=== PATIENT | female | born 1950 | race Caucasian/White ===

== ENCOUNTER 2019-06-25 08:54 | Inpatient (IN) | payer MEDICARE, OTHER ==
[2019-06-25] MEDS: Sodium Chloride 0.9% 10 ML Syringe FLUSH PRN (09:10)
[2019-06-25] MEDS ORDERED: Aspirin 81 MG Tab.Chew PO ONE (09:25)
--- NOTE | 2019-06-25 09:27 | EDM.PDOC ---
ED HPI GENERAL MEDICAL PROBLEM - General Stated Complaint: SOB Time Seen by Provider: 06/25/19 09:17 Source of Information: Reports: Patient History Limitations: Reports: No Limitations - History of Present Illness INITIAL COMMENTS - FREE TEXT/NARRATIVE: 68-year-old female who reports she developed a cold yesterday during the day. That is, she had some nasal congestion and a cough. That evening she began to have body aches and chills and at approximately 7 PM she reports that when she had coughing spells she got short of breath. The shortness of breath seemed to improve quickly after the coughing spell but the coughing spells became more frequent and shortness of breath lasted for longer periods of time. She also had a feeling of tightness and a dull ache in her chest with the cough. She rates that discomfort is a 6/10. It does not radiate. It is primarily there when she coughs. She did not sleep very well last night. She reports that she has had decrease fluid intake over the past 12-18 hours because she has felt too short of breath. She also reports that she has had diaphoretic episodes off and on with these coughing spells. No nausea but she has had 1 episode of posttussive emesis. No abdominal pain. Beginning at 8 AM today she was short of breath even without coughing and she could not "catch her breath". She does have diffuse body aches. There is no leg swelling. She tried her rescue inhaler several times without relief. She has never had episodes like this before she states. She has never required intubation. She has no nebulizer treatments at home. No home oxygen. She was noted to be 86% on room air white dyspneic by the nursing staff when she arrived to the emergency department today. There are no other associated signs or symptoms. There are no other modifying factors. Onset: Other (Yesterday during the day) Duration: Getting Worse Location: Reports: Chest Quality: Reports: Dull Severity: Moderate Improves with: Reports: Rest Worsens with: Reports: Breathing, Other (Coughing and activity) Context: Reports: Other (As above) Associated Symptoms: Reports: Chest Pain, Cough, Diaphoresis, Fever/Chills, Loss of Appetite, Nausea/Vomiting, Shortness of Breath, Weakness (With coughing spell) Treatments [employer]: Reports: Other Medication(s) (Rescue inhaler) Midsternal chest Pain Score (Numeric/FACES): 6 - Related Data Allergies Allergy/AdvReac Type Severity Reaction Status Date / Time No Known Allergies Allergy Verified 06/25/19 09:15 Home Meds: Home Meds Multivitamin [Multivitamins] 1 tab PO DAILY 06/30/14 [History] Albuterol Sulfate [Albuterol Sulfate Hfa] 2 puff Q4H PRN 06/25/19 [History] Ascorbic Acid [Vitamin C] 1,000 mg PO DAILY 06/25/19 [History] Cholecalciferol (Vitamin D3) [Vitamin D3] 2,000 unit PO DAILY 06/25/19 [History] Cyanocobalamin (Vitamin B-12) [Vitamin B-12] 1,000 mcg PO DAILY 06/25/19 [ History] Levothyroxine [Synthroid] 50 mcg DAILY 06/25/19 [History] Rosuvastatin Calcium 10 mg BEDTIME 06/25/19 [History] Sertraline HCl 50 mg DAILY 06/25/19 [History] Umeclidinium Brm/Vilanterol Tr [Anoro Ellipta 62.5-25 MCG] 1 puff DAILY [History] amLODIPine Besylate [Amlodipine Besylate] 10 mg DAILY 06/25/19 [History] Past Medical History Cardiovascular History: Reports: High Cholesterol, Hypertension Respiratory History: Reports: COPD Psychiatric History: Reports: Anxiety, Depression Endocrine/Metabolic History: Reports: Hypothyroidism - Past Surgical History GI Surgical History: Reports: Colonoscopy (2) Female Surgical History: Reports: Section Social & Family History - Tobacco Use Smoking Status *Q: Current Every Day Smoker - Alcohol Use Alcohol Use History: Yes Alcohol Use Frequency: Weekly - Living Situation & Occupation Living situation: Reports: with Family Occupation: Retired ED ROS GENERAL - Review of Systems Review Of Systems: See Below Constitutional: Reports: Chills, Malaise, Fatigue, Diaphoresis (Off and on) HEENT: Reports: Other (Nasal congestion) Respiratory: Reports: Shortness of Breath, Wheezing, Cough, Other (No phlegm production) Cardiovascular: Reports: Chest Pain, Dyspnea on Exertion, Lightheadedness GI/Abdominal: Reports: Vomiting (One posttussive emesis.) : Reports: Other (Decreased urine output over the past 18-24 hours.) Musculoskeletal: Reports: Other (Body aches throughout. No leg edema.) Skin: Reports: Diaphoresis (Off and on.) Neurological: Reports: No Symptoms Hematologic/Lymphatic: Reports: No Symptoms Immunologic: Reports: No Symptoms ED EXAM, GENERAL - Physical Exam Exam: See Below Exam Limited By: No Limitations General Appearance: Alert, WD/WN, Moderate Distress (She appears quite dyspneic) Eye Exam: Bilateral Eye: EOMI, Normal Inspection, PERRL Ears: Normal External Exam, Hearing Grossly Normal Ear Exam: Bilateral Ear: Auricle Normal Nose: Normal Inspection, Normal Mucosa, No Blood Throat/Mouth: Normal Lips, Normal Voice, No Airway Compromise, Other (Somewhat dry mucous membranes) Head: Atraumatic, Normocephalic Neck: Normal Inspection, Supple, Non-Tender, Full Range of Motion Respiratory/Chest: Chest Non-Tender, Respiratory Distress, Rhonchi (Some scattered rhonchi), Wheezing (Throughout with decreased air movement), Accessory Muscle Use (With some purse lipped breathing), Prolonged Expiration. No: Rales Cardiovascular: Normal Peripheral Pulses, No Edema, No JVD, Tachycardia Peripheral Pulses: 2+: Radial (L), Radial (R), Dorsalis Pedis (L), Dorsalis Pedis (R) GI/Abdominal: Normal Bowel Sounds, Soft, Non-Tender, No Mass Back Exam: Normal Inspection, Full Range of Motion Extremities: Normal Inspection, Normal Range of Motion, Non-Tender, No Pedal Edema, Normal Capillary Refill Neurological: Alert, Oriented, CN II-XII Intact, Normal Cognition, No Motor/ Sensory Deficits Skin Exam: Warm, Dry, Intact, Normal Color, No Rash EKG INTERPRETATION EKG Date: 06/25/19 Time: 09:03 Rhythm: NSR (Sinus tachycardia) Rate (Beats/Min): 125 Chandler: LAD-Left Chandler Deviation (Left anterior fascicular block) P-Wave: Present QRS: Other (Borderline widened) ST-T: Other (Nonspecific ST-T changes.) QT: Prolonged (Normal QT but prolonged QTc.) Comparison: NA - No Prior EKG Course - Vital Signs Last Recorded V/S: Last Vital Signs Temp 36.7 C 06/25/19 08:54 Pulse 140 H 06/25/19 08:54 Resp 28 H 06/25/19 08:54 BP 146/98 H 06/25/19 08:54 Pulse Ox 95 06/25/19 10:15 - Orders/Labs/Meds Orders: Active Orders 24 hr Category Date Time Status EKG Documentation Completion [RC] ASDIRECTED Care 06/25/19 09:25 Active Oxygen Therapy Adult [Oxygen Therapy, ED] [RC] Care 06/25/19 08:54 Active ASDIRECTED RT Aerosol Therapy [RC] ASDIRECTED Care 06/25/19 09:31 Active Chest 1V Frontal [CR] Stat Exams 06/25/19 09:28 Taken Sodium Chloride 0.9% [Normal Saline] 1,000 ml Med 06/25/19 09:30 Active IV ASDIRECTED Sodium Chloride 0.9% [Saline Flush] Med 06/25/19 09:25 Active 10 ml FLUSH ASDIRECTED PRN Peripheral IV Insertion Adult [OM.PC] Routine Oth 06/25/19 09:25 Ordered EKG 12 Lead [EK] Routine Ther 06/25/19 09:24 Ordered Medication Orders Sodium Chloride (Normal Saline) 1,000 mls @ 999 mls/hr IV ASDIRECTED ANIBAL Last Admin: 06/25/19 09:45 Dose: 999 mls/hr Azithromycin 500 mg/ Sodium (Chloride) 250 mls @ 250 mls/hr IV Q24H ANIBAL Ceftriaxone Sodium 1 gm/ (Sodium Chloride) 50 mls @ 200 mls/hr IV Q24H ANIBAL Sodium Chloride (Saline Flush) 10 ml FLUSH ASDIRECTED PRN PRN Reason: Keep Vein Open Last Admin: 06/25/19 09:10 Dose: 10 ml Labs: Laboratory Tests 06/25/19 06/25/19 06/25/19 Range/Units 09:00 09:00 09:00 WBC 7.6 (4.5-12.0) X10-3/uL RBC 4.87 (3.23-5.20) x10(6)uL Hgb 14.6 (11.5-15.5) g/dL Hct 43.3 (30.0-51.3) % MCV 88.9 (80-96) fL MCH 29.9 (27.7-33.6) pg MCHC 33.7 (32.2-35.4) g/dL RDW 12.8 (11.5-15.5) % Plt Count 197 (125-369) X10(3)uL MPV 8.8 (7.4-10.4) fL Neut % (Auto) 79.6 (46-82) % Lymph % (Auto) 10.9 L (13-37) % Randall % (Auto) 7.0 (4-12) % Eos % (Auto) 2 (1.0-5.0) % Baso % (Auto) 1 (0-2) % Neut # (Auto) 6.2 (1.6-8.3) # Lymph # (Auto) 0.8 (0.6-5.0) # Randall # (Auto) 0.5 (0.0-1.3) # Eos # (Auto) 0.1 (0.0-0.8) # Baso # (Auto) 0.0 (0.0-0.2) # D-Dimer, Quantitative (0.0-0.59) mg/LFEU POC VBG pH (7.31-7.41) POC VBG pCO2 (41-51) mmHG POC VBG HCO3 (23-28) mmol/L POC VBG Total CO2 (24-29) mmol/L POC VBG Base Excess (-2-3) mmol/L Sodium 141 (135-145) mmol/L Potassium 3.8 (3.5-5.3) mmol/L Chloride 102 (100-110) mmol/L Carbon Dioxide 27 (21-32) mmol/L BUN 9 (7-18) mg/dL Creatinine 0.8 (0.55-1.02) mg/dL Est Cr Clr Drug Dosing 54.71 mL/min Estimated GFR (MDRD) > 60 (>60) BUN/Creatinine Ratio 11.3 (9-20) Glucose 114 (80-116) mg/dL Calcium 8.7 (8.6-10.2) mg/dL Magnesium (1.8-2.5) mg/dL Total Bilirubin 0.4 (0.1-1.3) mg/dL AST 34 H (5-25) IU/L ALT 32 (12-36) U/L Alkaline Phosphatase 88 (56-112) IU/L Troponin I < 0.017 L (<0.017-0.056) ng/mL C-Reactive Protein (0.5-0.9) mg/dL NT-Pro-B Natriuret Pep (<=125) pg/mL Total Protein 7.7 (6.0-8.0) g/dL Albumin 3.8 (3.2-4.6) g/dL Globulin 3.9 g/dL Albumin/Globulin Ratio 1.0 06/25/19 06/25/19 06/25/19 Range/Units 09:00 09:00 09:00 WBC (4.5-12.0) X10-3/uL RBC (3.23-5.20) x10(6)uL Hgb (11.5-15.5) g/dL Hct (30.0-51.3) % MCV (80-96) fL MCH (27.7-33.6) pg MCHC (32.2-35.4) g/dL RDW (11.5-15.5) % Plt Count (125-369) X10(3)uL MPV (7.4-10.4) fL Neut % (Auto) (46-82) % Lymph % (Auto) (13-37) % Randall % (Auto) (4-12) % Eos % (Auto) (1.0-5.0) % Baso % (Auto) (0-2) % Neut # (Auto) (1.6-8.3) # Lymph # (Auto) (0.6-5.0) # Randall # (Auto) (0.0-1.3) # Eos # (Auto) (0.0-0.8) # Baso # (Auto) (0.0-0.2) # D-Dimer, Quantitative (0.0-0.59) mg/LFEU POC VBG pH (7.31-7.41) POC VBG pCO2 (41-51) mmHG POC VBG HCO3 (23-28) mmol/L POC VBG Total CO2 (24-29) mmol/L POC VBG Base Excess (-2-3) mmol/L Sodium (135-145) mmol/L Potassium (3.5-5.3) mmol/L Chloride (100-110) mmol/L Carbon Dioxide (21-32) mmol/L BUN (7-18) mg/dL Creatinine (0.55-1.02) mg/dL Est Cr Clr Drug Dosing mL/min Estimated GFR (MDRD) (>60) BUN/Creatinine Ratio (9-20) Glucose (80-116) mg/dL Calcium (8.6-10.2) mg/dL Magnesium 1.9 (1.8-2.5) mg/dL Total Bilirubin (0.1-1.3) mg/dL AST (5-25) IU/L ALT (12-36) U/L Alkaline Phosphatase (56-112) IU/L Troponin I (<0.017-0.056) ng/mL C-Reactive Protein 5.8 H* (0.5-0.9) mg/dL NT-Pro-B Natriuret Pep 287 H (<=125) pg/mL Total Protein (6.0-8.0) g/dL Albumin (3.2-4.6) g/dL Globulin g/dL Albumin/Globulin Ratio 06/25/19 06/25/19 Range/Units 09:00 10:18 WBC (4.5-12.0) X10-3/uL RBC (3.23-5.20) x10(6)uL Hgb (11.5-15.5) g/dL Hct (30.0-51.3) % MCV (80-96) fL MCH (27.7-33.6) pg MCHC (32.2-35.4) g/dL RDW (11.5-15.5) % Plt Count (125-369) X10(3)uL MPV (7.4-10.4) fL Neut % (Auto) (46-82) % Lymph % (Auto) (13-37) % Randall % (Auto) (4-12) % Eos % (Auto) (1.0-5.0) % Baso % (Auto) (0-2) % Neut # (Auto) (1.6-8.3) # Lymph # (Auto) (0.6-5.0) # Randall # (Auto) (0.0-1.3) # Eos # (Auto) (0.0-0.8) # Baso # (Auto) (0.0-0.2) # D-Dimer, Quantitative 0.45 (0.0-0.59) mg/LFEU POC VBG pH 7.35 (7.31-7.41) POC VBG pCO2 48.8 (41-51) mmHG POC VBG HCO3 27.1 (23-28) mmol/L POC VBG Total CO2 29 (24-29) mmol/L POC VBG Base Excess 2 (-2-3) mmol/L Sodium (135-145) mmol/L Potassium (3.5-5.3) mmol/L Chloride (100-110) mmol/L Carbon Dioxide (21-32) mmol/L BUN (7-18) mg/dL Creatinine (0.55-1.02) mg/dL Est Cr Clr Drug Dosing mL/min Estimated GFR (MDRD) (>60) BUN/Creatinine Ratio (9-20) Glucose (80-116) mg/dL Calcium (8.6-10.2) mg/dL Magnesium (1.8-2.5) mg/dL Total Bilirubin (0.1-1.3) mg/dL AST (5-25) IU/L ALT (12-36) U/L Alkaline Phosphatase (56-112) IU/L Troponin I (<0.017-0.056) ng/mL C-Reactive Protein (0.5-0.9) mg/dL NT-Pro-B Natriuret Pep (<=125) pg/mL Total Protein (6.0-8.0) g/dL Albumin (3.2-4.6) g/dL Globulin g/dL Albumin/Globulin Ratio Meds: Medications Generic Name Dose Route Start Last Admin Trade Name Freq PRN Reason Stop Dose Admin Sodium Chloride 1,000 mls @ 999 mls/hr 06/25/19 09:30 06/25/19 09:45 Normal Saline IV 999 mls/hr ASDIRECTED ANIBAL Administration Azithromycin 500 mg/ Sodium 250 mls @ 250 mls/hr 06/25/19 12:00 Chloride IV Q24H ANIBAL Ceftriaxone Sodium 1 gm/ 50 mls @ 200 mls/hr 06/25/19 12:00 Sodium Chloride IV Q24H ANIBAL Sodium Chloride 10 ml 06/25/19 09:25 06/25/19 09:10 Saline Flush FLUSH 10 ml ASDIRECTED PRN Administration Keep Vein Open Discontinued Medications Generic Name Dose Route Start Last Admin Trade Name Freq PRN Reason Stop Dose Admin Albuterol 2.5 mg 06/25/19 09:30 06/25/19 09:43 Proventil Neb Soln NEB 06/25/19 09:31 2.5 mg ONETIME ONE Administration Albuterol 2.5 mg 06/25/19 11:58 Proventil Neb Soln NEB 06/25/19 11:59 ONETIME ONE Albuterol/Ipratropium 3 ml 06/25/19 09:30 06/25/19 09:43 Duoneb 3.0-0.5 Mg/3 Ml NEB 06/25/19 09:31 3 ml ONETIME ONE Administration Aspirin 324 mg 06/25/19 09:25 06/25/19 09:10 Aspirin PO 06/25/19 09:26 324 mg ONETIME ONE Administration Methylprednisolone Sodium Succinate 125 mg 06/25/19 09:30 06/25/19 09:46 Solu-Medrol IVPUSH 06/25/19 09:31 125 mg ONETIME ONE Administration - Radiology Interpretation Free Text/Narrative:: Portable chest x-ray shows hyperinflated lungs with COPD but no acute infiltrate. - Re-Assessments/Exams Free Text/Narrative Re-Assessment/Exam: 06/25/19 11:38: After nebulizer treatments and IV Solu-Medrol, the patient feels improved. She is on room air but her O2 saturations are 89-90% and I will be placing her back on oxygen at 3 L/m via nasal cannula. She is still quite wheezy. Her chest x-ray shows no definite infiltrate and she has no evidence of congestive heart failure. Her blood tests were reassuring. This appears to be respiratory failure associated with a COPD exacerbation. I will order an additional nebulizer treatment. The patient does have acute hypoxic respiratory failure related to her COPD. She will need admission with supplemental oxygen, frequent nebulizer treatments, IV steroids treatment and IV antibiotics. This plan of care cannot be safely accomplished as an outpatient. She will need an inpatient hospital visit of least a 2 midnight stay. I have discussed this with the patient and she is in agreement with the plan for admission. I will discuss her case with Dr. Proctor. 06/25/19 12:05: I discussed the patient's case with Dr. Proctor hospitalist at [facility], and he has agreed to admit the patient. The patient will be given Rocephin and Zithromax IV. Dr. Proctor will see the patient on the floor. Departure - Departure Time of Disposition: 12:15 Disposition: Admitted As Inpatient 68 Condition: Fair (Stable) Clinical Impression: COPD exacerbation, Acute respiratory failure with hypoxia - Discharge Information - My Orders Last 24 Hours: My Active Orders 06/25/19 08:54 Oxygen Therapy Adult [Oxygen Therapy, ED] [RC] ASDIRECTED 06/25/19 09:24 EKG 12 Lead [EK] Routine 06/25/19 09:25 EKG Documentation Completion [RC] ASDIRECTED Sodium Chloride 0.9% [Saline Flush] 10 ml FLUSH ASDIRECTED PRN Peripheral IV Insertion Adult [OM.PC] Routine 06/25/19 09:28 Chest 1V Frontal [CR] Stat 06/25/19 09:30 Sodium Chloride 0.9% [Normal Saline] 1,000 ml IV ASDIRECTED 06/25/19 09:31 RT Aerosol Therapy [RC] ASDIRECTED - Assessment/Plan Last 24 Hours: My Active Orders 06/25/19 08:54 Oxygen Therapy Adult [Oxygen Therapy, ED] [RC] ASDIRECTED 06/25/19 09:24 EKG 12 Lead [EK] Routine 06/25/19 09:25 EKG Documentation Completion [RC] ASDIRECTED Sodium Chloride 0.9% [Saline Flush] 10 ml FLUSH ASDIRECTED PRN Peripheral IV Insertion Adult [OM.PC] Routine 06/25/19 09:28 Chest 1V Frontal [CR] Stat 06/25/19 09:30 Sodium Chloride 0.9% [Normal Saline] 1,000 ml IV ASDIRECTED 06/25/19 09:31 RT Aerosol Therapy [RC] ASDIRECTED
[2019-06-25] MEDS ORDERED: Albuterol 0.083% 2.5 MG/3 ML Neb Soln NEB ONE ×2 (09:30→11:58)
[2019-06-25] MEDS ORDERED: Sodium Chloride 0.9% 1,000 ML IV SCH (09:30)
[2019-06-25] MEDS ORDERED: methylPREDNISolone Sodium Succinate 125 MG/2 ML SDV IVPUSH ONE (09:30)
[2019-06-25] MEDS ORDERED: Albuterol/Ipratropium 3.0-0.5 MG/3 ML Neb Soln NEB ONE (09:30)
[2019-06-25] MEDS ORDERED: cefTRIAXone 1 GM in Sodium Chloride 0.9% 50 ML IV SCH (12:00)
--- NOTE | 2019-06-25 13:13 | PCM.HP.2 ---
H&P History of Present Illness - General Date of Service: 06/25/19 Admit Problem/Dx: Admission Diagnosis/Problem Admission Diagnosis/Problem COPD, Severe chronic obstructive pulmonary disease Source of Information: Patient History Limitations: Reports: No Limitations - History of Present Illness Initial Comments - Free Text/Narative: this is a 68-year-old female patient with a history of COPD and smoking. 2 days prior to being hospitalized patient started having a chest cold with nasal congestion, sore throat, left ear pain, fevers or chills and a cough. Day prior to being seen she started he really short of breath and wheeze. She was seen in the ER and she was hypoxic. They gave her nebulizer she was in oxygen and then she was admitted. She says she's never been on prednisone or an oxygen before. She has a long history of smoking and still smokes 3 course pack-a-day. She says she's tried to quit over 40 times. She says some nausea and vomited 1. No diarrhea, abdominal pain or leg swelling. Midsternal chest Pain Score (Numeric/FACES): 6 - Related Data Allergies/Adverse Reactions: Allergies Allergy/AdvReac Type Severity Reaction Status Date / Time No Known Allergies Allergy Verified 06/25/19 09:15 Home Medications: Home Meds Multivitamin [Multivitamins] 1 tab PO DAILY 06/30/14 [History] Albuterol Sulfate [Albuterol Sulfate Hfa] 2 puff Q4H PRN 06/25/19 [History] Ascorbic Acid [Vitamin C] 1,000 mg PO DAILY 06/25/19 [History] Cholecalciferol (Vitamin D3) [Vitamin D3] 2,000 unit PO DAILY 06/25/19 [History] Cyanocobalamin (Vitamin B-12) [Vitamin B-12] 1,000 mcg PO DAILY 06/25/19 [ History] Levothyroxine [Synthroid] 50 mcg DAILY 06/25/19 [History] Rosuvastatin Calcium 10 mg BEDTIME 06/25/19 [History] Sertraline HCl 50 mg DAILY 06/25/19 [History] Umeclidinium Brm/Vilanterol Tr [Anoro Ellipta 62.5-25 MCG] 1 puff DAILY [History] amLODIPine Besylate [Amlodipine Besylate] 10 mg DAILY 06/25/19 [History] Past Medical History Cardiovascular History: Reports: High Cholesterol, Hypertension Respiratory History: Reports: COPD Genitourinary History: Reports: None [employer] History: Reports: Psychiatric History: Reports: Anxiety, Depression Endocrine/Metabolic History: Reports: Hypothyroidism - Infectious Disease History Infectious Disease History: Reports: Chicken Pox - Past Surgical History GI Surgical History: Reports: Colonoscopy (2) Female Surgical History: Reports: Section Social & Family History - Family History Family Medical History: Noncontributory - Tobacco Use Smoking Status *Q: Current Every Day Smoker Years of Tobacco use: 50 Packs/Tins Daily: 0.7 - Caffeine Use Caffeine Use: Reports: Coffee - Alcohol Use Days Per Week of Alcohol Use: 1 Number of Drinks Per Day: 4 Total Drinks Per Week: 4 - Recreational Drug Use Recreational Drug Use: No - Living Situation & Occupation Living situation: Reports: with Family Occupation: Retired H&P Review of Systems - Review of Systems: Review Of Systems: See Below General: Reports: Fever, Chills, Diaphoresis. Denies: Weakness, Decreased Appetite HEENT: Reports: Ear Pain, Post Nasal Drip, Sinus Congestion, Sore Throat Pulmonary: Reports: Shortness of Breath, Wheezing, Cough. Denies: Sputum, Hemoptysis Cardiovascular: Reports: No Symptoms Gastrointestinal: Reports: Nausea, Vomiting. Denies: Black Stool, Bloody Stool , Constipation, Diarrhea Genitourinary: Reports: No Symptoms Musculoskeletal: Reports: No Symptoms Skin: Reports: No Symptoms Psychiatric: Reports: Depression, Anxiety, Other (Just started being treated for depression and anxiety but 1 month ago on Zoloft. She says Zoloft makes her a little bit more depressed but the anxiety is much better.) Hematologic/Lymphatic: Reports: No Symptoms Immunologic: Reports: No Symptoms Exam - Exam Exam: See Below - Vital Signs Vital Signs: Last Vital Signs Temp 98.1 F 06/25/19 08:54 Pulse 140 H 06/25/19 08:54 Resp 28 H 06/25/19 08:54 BP 146/98 H 06/25/19 08:54 Pulse Ox 95 06/25/19 10:15 Weight: 160 lb - Exam General: Alert, Oriented, Cooperative HEENT: Hearing Intact, Mucosa Moist & [place], Posterior Pharynx Clear, TMs Clear Neck: Supple, Trachea Midline, Full Range of Motion. No: Lymphadenopathy, Carotid Bruit, JVD Lungs: Normal Respiratory Effort, Decreased Breath Sounds, Wheezing. No: Crackles, Rales, Rhonchi Cardiovascular: Regular Rate, Regular Rhythm, Normal S1, Normal S2. No: Systolic Murmur, Diastolic Murmur GI/Abdominal Exam: Normal Bowel Sounds, Soft, Non-Tender, No Organomegaly, No Distention, No Abnormal Bruit, No Mass Back Exam: Normal Inspection Extremities: Normal Inspection, Non-Tender, No Pedal Edema Skin: Warm, Dry, Intact Neurological: Normal Speech, Normal Tone Neuro Extensive - Mental Status: Alert, Oriented x3, Normal Mood/Affect, Normal Cognition, Memory Intact Psychiatric: Alert, Normal Affect, Normal Mood - Patient Data Lab Results Last 24 hrs: Laboratory Results - last 24 hr 06/25/19 06/25/19 06/25/19 Range/Units 09:00 09:00 09:00 WBC 7.6 (4.5-12.0) X10-3/uL RBC 4.87 (3.23-5.20) x10(6)uL Hgb 14.6 (11.5-15.5) g/dL Hct 43.3 (30.0-51.3) % MCV 88.9 (80-96) fL MCH 29.9 (27.7-33.6) pg MCHC 33.7 (32.2-35.4) g/dL RDW 12.8 (11.5-15.5) % Plt Count 197 (125-369) X10(3)uL MPV 8.8 (7.4-10.4) fL Neut % (Auto) 79.6 (46-82) % Lymph % (Auto) 10.9 L (13-37) % [place] % (Auto) 7.0 (4-12) % Eos % (Auto) 2 (1.0-5.0) % Baso % (Auto) 1 (0-2) % Neut # (Auto) 6.2 (1.6-8.3) # Lymph # (Auto) 0.8 (0.6-5.0) # [place] # (Auto) 0.5 (0.0-1.3) # Eos # (Auto) 0.1 (0.0-0.8) # Baso # (Auto) 0.0 (0.0-0.2) # D-Dimer, Quantitative (0.0-0.59) mg/LFEU POC VBG pH (7.31-7.41) POC VBG pCO2 (41-51) mmHG POC VBG HCO3 (23-28) mmol/L POC VBG Total CO2 (24-29) mmol/L POC VBG Base Excess (-2-3) mmol/L Sodium 141 (135-145) mmol/L Potassium 3.8 (3.5-5.3) mmol/L Chloride 102 (100-110) mmol/L Carbon Dioxide 27 (21-32) mmol/L BUN 9 (7-18) mg/dL Creatinine 0.8 (0.55-1.02) mg/dL Est Cr Clr Drug Dosing 54.71 mL/min Estimated GFR (MDRD) > 60 (>60) BUN/Creatinine Ratio 11.3 (9-20) Glucose 114 (80-116) mg/dL Calcium 8.7 (8.6-10.2) mg/dL Magnesium (1.8-2.5) mg/dL Total Bilirubin 0.4 (0.1-1.3) mg/dL AST 34 H (5-25) IU/L ALT 32 (12-36) U/L Alkaline Phosphatase 88 (56-112) IU/L Troponin I < 0.017 L (<0.017-0.056) ng/mL C-Reactive Protein (0.5-0.9) mg/dL NT-Pro-B Natriuret Pep (<=125) pg/mL Total Protein 7.7 (6.0-8.0) g/dL Albumin 3.8 (3.2-4.6) g/dL Globulin 3.9 g/dL Albumin/Globulin Ratio 1.0 06/25/19 06/25/19 06/25/19 Range/Units 09:00 09:00 09:00 WBC (4.5-12.0) X10-3/uL RBC (3.23-5.20) x10(6)uL Hgb (11.5-15.5) g/dL Hct (30.0-51.3) % MCV (80-96) fL MCH (27.7-33.6) pg MCHC (32.2-35.4) g/dL RDW (11.5-15.5) % Plt Count (125-369) X10(3)uL MPV (7.4-10.4) fL Neut % (Auto) (46-82) % Lymph % (Auto) (13-37) % [place] % (Auto) (4-12) % Eos % (Auto) (1.0-5.0) % Baso % (Auto) (0-2) % Neut # (Auto) (1.6-8.3) # Lymph # (Auto) (0.6-5.0) # Harvey # (Auto) (0.0-1.3) # Eos # (Auto) (0.0-0.8) # Baso # (Auto) (0.0-0.2) # D-Dimer, Quantitative (0.0-0.59) mg/LFEU POC VBG pH (7.31-7.41) POC VBG pCO2 (41-51) mmHG POC VBG HCO3 (23-28) mmol/L POC VBG Total CO2 (24-29) mmol/L POC VBG Base Excess (-2-3) mmol/L Sodium (135-145) mmol/L Potassium (3.5-5.3) mmol/L Chloride (100-110) mmol/L Carbon Dioxide (21-32) mmol/L BUN (7-18) mg/dL Creatinine (0.55-1.02) mg/dL Est Cr Clr Drug Dosing mL/min Estimated GFR (MDRD) (>60) BUN/Creatinine Ratio (9-20) Glucose (80-116) mg/dL Calcium (8.6-10.2) mg/dL Magnesium 1.9 (1.8-2.5) mg/dL Total Bilirubin (0.1-1.3) mg/dL AST (5-25) IU/L ALT (12-36) U/L Alkaline Phosphatase (56-112) IU/L Troponin I (<0.017-0.056) ng/mL C-Reactive Protein 5.8 H* (0.5-0.9) mg/dL NT-Pro-B Natriuret Pep 287 H (<=125) pg/mL Total Protein (6.0-8.0) g/dL Albumin (3.2-4.6) g/dL Globulin g/dL Albumin/Globulin Ratio 06/25/19 06/25/19 Range/Units 09:00 10:18 WBC (4.5-12.0) X10-3/uL RBC (3.23-5.20) x10(6)uL Hgb (11.5-15.5) g/dL Hct (30.0-51.3) % MCV (80-96) fL MCH (27.7-33.6) pg MCHC (32.2-35.4) g/dL RDW (11.5-15.5) % Plt Count (125-369) X10(3)uL MPV (7.4-10.4) fL Neut % (Auto) (46-82) % Lymph % (Auto) (13-37) % [place] % (Auto) (4-12) % Eos % (Auto) (1.0-5.0) % Baso % (Auto) (0-2) % Neut # (Auto) (1.6-8.3) # Lymph # (Auto) (0.6-5.0) # Harvey # (Auto) (0.0-1.3) # Eos # (Auto) (0.0-0.8) # Baso # (Auto) (0.0-0.2) # D-Dimer, Quantitative 0.45 (0.0-0.59) mg/LFEU POC VBG pH 7.35 (7.31-7.41) POC VBG pCO2 48.8 (41-51) mmHG POC VBG HCO3 27.1 (23-28) mmol/L POC VBG Total CO2 29 (24-29) mmol/L POC VBG Base Excess 2 (-2-3) mmol/L Sodium (135-145) mmol/L Potassium (3.5-5.3) mmol/L Chloride (100-110) mmol/L Carbon Dioxide (21-32) mmol/L BUN (7-18) mg/dL Creatinine (0.55-1.02) mg/dL Est Cr Clr Drug Dosing mL/min Estimated GFR (MDRD) (>60) BUN/Creatinine Ratio (9-20) Glucose (80-116) mg/dL Calcium (8.6-10.2) mg/dL Magnesium (1.8-2.5) mg/dL Total Bilirubin (0.1-1.3) mg/dL AST (5-25) IU/L ALT (12-36) U/L Alkaline Phosphatase (56-112) IU/L Troponin I (<0.017-0.056) ng/mL C-Reactive Protein (0.5-0.9) mg/dL NT-Pro-B Natriuret Pep (<=125) pg/mL Total Protein (6.0-8.0) g/dL Albumin (3.2-4.6) g/dL Globulin g/dL Albumin/Globulin Ratio Result Diagrams: 06/25/19 09:00 06/25/19 09:00 - Problem List (1) Hypoxia SNOMED Code(s): 003364577 ICD Code: R09.02 - HYPOXEMIA Status: Acute Current Visit: Yes (2) URI (upper respiratory infection) SNOMED Code(s): 58297341 ICD Code: J06.9 - ACUTE UPPER RESPIRATORY INFECTION, UNSPECIFIED Status: Acute Current Visit: Yes (3) Smoking SNOMED Code(s): 37160382 ICD Code: F17.200 - NICOTINE DEPENDENCE, UNSPECIFIED, UNCOMPLICATED Status : Acute Current Visit: Yes (4) COPD exacerbation SNOMED Code(s): 811453301 ICD Code: J44.1 - CHRONIC OBSTRUCTIVE PULMONARY DISEASE W (ACUTE) EXACERBATION Status: Acute Current Visit: Yes Problem List Initiated/Reviewed/Updated: Yes Orders Last 24hrs: Active Orders 24 hr Category Date Time Status Admission Status [Patient Status] [ADT] Routine ADT 06/25/19 11:56 Active EKG Documentation Completion [RC] ASDIRECTED Care 06/25/19 09:25 Active Oxygen Therapy Adult [Oxygen Therapy, ED] [RC] Care 06/25/19 08:54 Active ASDIRECTED RT Aerosol Therapy [RC] ASDIRECTED Care 06/25/19 09:31 Active RT Aerosol Therapy [RC] ASDIRECTED Care 06/25/19 11:58 Active RT Aerosol Therapy [RC] ASDIRECTED Care 06/25/19 13:03 Ordered Up ad Delfina [RC] ASDIRECTED Care 06/25/19 13:04 Ordered Regular Diet [DIET] Diet 06/25/19 Dinner Ordered Chest 1V Frontal [CR] Stat Exams 06/25/19 09:28 Taken UA W/MICROSCOPIC [URIN] Routine Lab 06/25/19 13:00 Ordered Albuterol/Ipratropium [DuoNeb 3.0-0.5 MG/3 ML] Med 06/25/19 17:00 Ordered 3 ml NEB QID Azithromycin [Zithromax] 500 mg Med 06/25/19 12:00 Active Sodium Chloride 0.9% [Normal Saline (AdvBag)] 250 ml IV Q24H Cyanocobalamin (Vitamin B12) [Vitamin B12] Med 06/26/19 09:00 Ordered 1,000 mcg PO DAILY Enoxaparin [Lovenox] Med 06/25/19 13:15 Ordered 40 mg SUBCUT DAILY Levothyroxine [Synthroid] Med 06/26/19 09:00 Ordered 50 mcg PO DAILY Multivitamin [Multivitamins] Med 06/26/19 09:00 Ordered 1 tab PO DAILY Nicotine [Habitrol] Med 06/25/19 13:15 Ordered 21 mg TRDERM DAILY Rosuvastatin [Crestor] Med 06/25/19 21:00 Ordered 10 mg PO BEDTIME Sertraline [Zoloft] Med 06/26/19 09:00 Ordered 50 mg PO DAILY Sodium Chloride 0.9% [Normal Saline] 1,000 ml Med 06/25/19 09:30 Active IV ASDIRECTED Sodium Chloride 0.9% [Saline Flush] Med 06/25/19 09:25 Active 10 ml FLUSH ASDIRECTED PRN amLODIPine [Norvasc] Med 06/26/19 09:00 Ordered 10 mg PO DAILY cefTRIAXone [Rocephin] Med 06/25/19 13:00 Active 1 gm IVPUSH Q24H methylPREDNISolone Sod Succ [Solu-MEDROL] Med 06/25/19 13:15 Ordered 125 mg IVPUSH Q8H Peripheral IV Insertion Adult [OM.PC] Routine Oth 06/25/19 09:25 Ordered SCD [Sequential Compression Device] [OM.PC] Routine Oth 06/25/19 13:07 Ordered Resuscitation Status Routine Resus Stat 06/25/19 13:02 Ordered EKG 12 Lead [EK] Routine Ther 06/25/19 09:24 Ordered Medication Orders Albuterol/Ipratropium (Duoneb 3.0-0.5 Mg/3 Ml) 3 ml NEB QIDRT ANIBAL Ceftriaxone Sodium (Rocephin) 1 gm IVPUSH Q24H [facility] Sodium Chloride (Normal Saline) 1,000 mls @ 999 mls/hr IV ASDIRECTED ANIBAL Last Admin: 06/25/19 09:45 Dose: 999 mls/hr Azithromycin 500 mg/ Sodium (Chloride) 250 mls @ 250 mls/hr IV Q24H ANIBAL Methylprednisolone Sodium Succinate (Solu-Medrol) 125 mg IVPUSH Q8H [facility] Nicotine (Habitrol) 21 mg TRDERM DAILY [facility] Sodium Chloride (Saline Flush) 10 ml FLUSH ASDIRECTED PRN PRN Reason: Keep Vein Open Last Admin: 06/25/19 09:10 Dose: 10 ml Assessment/Plan Comment:: 1. admit to inpatient. 2. Patient will be a full code per patient request. 3. Duo nebs 4 times a day and every 4 hours when necessary. 4. Solu-Medrol 125 mg every 8 hours IV 5. O2 nasal cannula keep sats between 88-92%. 6. Smoking cessation discussed. Will lacer on the 21 g nicotine patch 7. Up ad delfina. with a regular diet. 8. Rocephin and Zithromax IV. 9. Lovenox and SCDs for VTE prophylaxis. - Mortality Measure Prognosis:: Good
[2019-06-25] MEDS ORDERED: Nicotine 21 MG/24 Hr Patch TRDERM SCH (13:15)
[2019-06-25] MEDS ORDERED: Enoxaparin 40 MG/0.4 ML Syringe SUBCUT SCH (13:15)
[2019-06-25] MEDS: cefTRIAXone 1 GM Vial IVPUSH SCH (13:54)
[2019-06-25] MEDS: Azithromycin 500 MG in Sodium Chloride 0.9% 250 ML IV SCH (13:56)
[2019-06-25] MEDS: Albuterol/Ipratropium 3.0-0.5 MG/3 ML Neb Soln NEB SCH ×2 (15:57→20:26)
[2019-06-25] MEDS: methylPREDNISolone Sodium Succinate 125 MG/2 ML SDV IVPUSH SCH (16:18)
[2019-06-25] MEDS: Acetaminophen 325 MG Tab PO PRN (19:43)
[2019-06-25] MEDS: Rosuvastatin 10 MG Tab PO SCH (20:26)
[2019-06-26] MEDS: Acetaminophen 325 MG Tab PO PRN ×3 (00:41→21:56)
[2019-06-26] MEDS: methylPREDNISolone Sodium Succinate 125 MG/2 ML SDV IVPUSH SCH ×2 (00:41→10:05)
[2019-06-26] MEDS: Sodium Chloride 0.9% 10 ML Syringe FLUSH PRN ×2 (00:43→10:05)
[2019-06-26] MEDS: Albuterol/Ipratropium 3.0-0.5 MG/3 ML Neb Soln NEB SCH ×4 (06:16→20:21)
[2019-06-26] MEDS: Levothyroxine 50 MCG Tab PO SCH (06:29)
[2019-06-26] MEDS: Multivitamin Tab PO SCH (08:33)
[2019-06-26] MEDS: Cyanocobalamin (Vitamin B12) 1,000 MCG Tab PO SCH (08:34)
[2019-06-26] MEDS: amLODIPine 10 MG Tab PO SCH (08:34)
[2019-06-26] MEDS: Sertraline 50 MG Tab PO SCH (08:34)
--- NOTE | 2019-06-26 08:47 | PCM.PN ---
- General Info Date of Service: 06/26/19 Admission Dx/Problem (Free Text): Patient states breathing is better today. She says she still have a cough that' s nonproductive. She denies fevers, chills. She has less wheezing. When she walks she is less short of breath although she's been pretty short of breath walking last night. - Patient Data Vitals - Most Recent: Last Vital Signs Temp 97.9 F 06/26/19 00:50 Pulse 110 H 06/26/19 00:50 Resp 18 06/26/19 00:50 BP 121/85 06/26/19 08:34 Pulse Ox 91 L 06/26/19 00:50 Weight - Most Recent: 156 lb 3 oz Lab Results Last 24 Hours: Laboratory Results - last 24 hr 06/25/19 06/25/19 06/25/19 Range/Units 09:00 09:00 09:00 WBC 7.6 (4.5-12.0) X10-3/uL RBC 4.87 (3.23-5.20) x10(6)uL Hgb 14.6 (11.5-15.5) g/dL Hct 43.3 (30.0-51.3) % MCV 88.9 (80-96) fL MCH 29.9 (27.7-33.6) pg MCHC 33.7 (32.2-35.4) g/dL RDW 12.8 (11.5-15.5) % Plt Count 197 (125-369) X10(3)uL MPV 8.8 (7.4-10.4) fL Neut % (Auto) 79.6 (46-82) % Lymph % (Auto) 10.9 L (13-37) % [place] % (Auto) 7.0 (4-12) % Eos % (Auto) 2 (1.0-5.0) % Baso % (Auto) 1 (0-2) % Neut # (Auto) 6.2 (1.6-8.3) # Lymph # (Auto) 0.8 (0.6-5.0) # [place] # (Auto) 0.5 (0.0-1.3) # Eos # (Auto) 0.1 (0.0-0.8) # Baso # (Auto) 0.0 (0.0-0.2) # D-Dimer, Quantitative (0.0-0.59) mg/LFEU POC VBG pH (7.31-7.41) POC VBG pCO2 (41-51) mmHG POC VBG HCO3 (23-28) mmol/L POC VBG Total CO2 (24-29) mmol/L POC VBG Base Excess (-2-3) mmol/L Sodium 141 (135-145) mmol/L Potassium 3.8 (3.5-5.3) mmol/L Chloride 102 (100-110) mmol/L Carbon Dioxide 27 (21-32) mmol/L BUN 9 (7-18) mg/dL Creatinine 0.8 (0.55-1.02) mg/dL Est Cr Clr Drug Dosing 54.71 mL/min Estimated GFR (MDRD) > 60 (>60) BUN/Creatinine Ratio 11.3 (9-20) Glucose 114 (80-116) mg/dL Calcium 8.7 (8.6-10.2) mg/dL Magnesium (1.8-2.5) mg/dL Total Bilirubin 0.4 (0.1-1.3) mg/dL AST 34 H (5-25) IU/L ALT 32 (12-36) U/L Alkaline Phosphatase 88 (56-112) IU/L Troponin I < 0.017 L (<0.017-0.056) ng/mL C-Reactive Protein (0.5-0.9) mg/dL NT-Pro-B Natriuret Pep (<=125) pg/mL Total Protein 7.7 (6.0-8.0) g/dL Albumin 3.8 (3.2-4.6) g/dL Globulin 3.9 g/dL Albumin/Globulin Ratio 1.0 Urine Color (YELLOW) Urine Appearance (CLEAR) Urine pH (5.0-6.5) Ur Specific Agency (1.010-1.025) Urine Protein (NEGATIVE) mg/dL Urine Glucose (UA) (NORMAL) mg/dL Urine Ketones (NEGATIVE) mg/dL Urine Occult Blood (NEGATIVE) Urine Nitrite (NEGATIVE) Urine Bilirubin (NEGATIVE) Urine Urobilinogen (NEGATIVE) mg/dL Ur Leukocyte Esterase (NEGATIVE) Urine RBC (0-5) Urine WBC (0-5) Ur Squamous Epith Cells (NS,R,O) Urine Bacteria (NS) 06/25/19 06/25/19 06/25/19 Range/Units 09:00 09:00 09:00 WBC (4.5-12.0) X10-3/uL RBC (3.23-5.20) x10(6)uL Hgb (11.5-15.5) g/dL Hct (30.0-51.3) % MCV (80-96) fL MCH (27.7-33.6) pg MCHC (32.2-35.4) g/dL RDW (11.5-15.5) % Plt Count (125-369) X10(3)uL MPV (7.4-10.4) fL Neut % (Auto) (46-82) % Lymph % (Auto) (13-37) % [place] % (Auto) (4-12) % Eos % (Auto) (1.0-5.0) % Baso % (Auto) (0-2) % Neut # (Auto) (1.6-8.3) # Lymph # (Auto) (0.6-5.0) # [place] # (Auto) (0.0-1.3) # Eos # (Auto) (0.0-0.8) # Baso # (Auto) (0.0-0.2) # D-Dimer, Quantitative (0.0-0.59) mg/LFEU POC VBG pH (7.31-7.41) POC VBG pCO2 (41-51) mmHG POC VBG HCO3 (23-28) mmol/L POC VBG Total CO2 (24-29) mmol/L POC VBG Base Excess (-2-3) mmol/L Sodium (135-145) mmol/L Potassium (3.5-5.3) mmol/L Chloride (100-110) mmol/L Carbon Dioxide (21-32) mmol/L BUN (7-18) mg/dL Creatinine (0.55-1.02) mg/dL Est Cr Clr Drug Dosing mL/min Estimated GFR (MDRD) (>60) BUN/Creatinine Ratio (9-20) Glucose (80-116) mg/dL Calcium (8.6-10.2) mg/dL Magnesium 1.9 (1.8-2.5) mg/dL Total Bilirubin (0.1-1.3) mg/dL AST (5-25) IU/L ALT (12-36) U/L Alkaline Phosphatase (56-112) IU/L Troponin I (<0.017-0.056) ng/mL C-Reactive Protein 5.8 H* (0.5-0.9) mg/dL NT-Pro-B Natriuret Pep 287 H (<=125) pg/mL Total Protein (6.0-8.0) g/dL Albumin (3.2-4.6) g/dL Globulin g/dL Albumin/Globulin Ratio Urine Color (YELLOW) Urine Appearance (CLEAR) Urine pH (5.0-6.5) Ur Specific Agency (1.010-1.025) Urine Protein (NEGATIVE) mg/dL Urine Glucose (UA) (NORMAL) mg/dL Urine Ketones (NEGATIVE) mg/dL Urine Occult Blood (NEGATIVE) Urine Nitrite (NEGATIVE) Urine Bilirubin (NEGATIVE) Urine Urobilinogen (NEGATIVE) mg/dL Ur Leukocyte Esterase (NEGATIVE) Urine RBC (0-5) Urine WBC (0-5) Ur Squamous Epith Cells (NS,R,O) Urine Bacteria (NS) 06/25/19 06/25/19 06/25/19 Range/Units 09:00 10:18 12:10 WBC (4.5-12.0) X10-3/uL RBC (3.23-5.20) x10(6)uL Hgb (11.5-15.5) g/dL Hct (30.0-51.3) % MCV (80-96) fL MCH (27.7-33.6) pg MCHC (32.2-35.4) g/dL RDW (11.5-15.5) % Plt Count (125-369) X10(3)uL MPV (7.4-10.4) fL Neut % (Auto) (46-82) % Lymph % (Auto) (13-37) % [place] % (Auto) (4-12) % Eos % (Auto) (1.0-5.0) % Baso % (Auto) (0-2) % Neut # (Auto) (1.6-8.3) # Lymph # (Auto) (0.6-5.0) # [place] # (Auto) (0.0-1.3) # Eos # (Auto) (0.0-0.8) # Baso # (Auto) (0.0-0.2) # D-Dimer, Quantitative 0.45 (0.0-0.59) mg/LFEU POC VBG pH 7.35 (7.31-7.41) POC VBG pCO2 48.8 (41-51) mmHG POC VBG HCO3 27.1 (23-28) mmol/L POC VBG Total CO2 29 (24-29) mmol/L POC VBG Base Excess 2 (-2-3) mmol/L Sodium (135-145) mmol/L Potassium (3.5-5.3) mmol/L Chloride (100-110) mmol/L Carbon Dioxide (21-32) mmol/L BUN (7-18) mg/dL Creatinine (0.55-1.02) mg/dL Est Cr Clr Drug Dosing mL/min Estimated GFR (MDRD) (>60) BUN/Creatinine Ratio (9-20) Glucose (80-116) mg/dL Calcium (8.6-10.2) mg/dL Magnesium (1.8-2.5) mg/dL Total Bilirubin (0.1-1.3) mg/dL AST (5-25) IU/L ALT (12-36) U/L Alkaline Phosphatase (56-112) IU/L Troponin I (<0.017-0.056) ng/mL C-Reactive Protein (0.5-0.9) mg/dL NT-Pro-B Natriuret Pep (<=125) pg/mL Total Protein (6.0-8.0) g/dL Albumin (3.2-4.6) g/dL Globulin g/dL Albumin/Globulin Ratio Urine Color Yellow (YELLOW) Urine Appearance Clear (CLEAR) Urine pH 5.0 (5.0-6.5) Ur Specific Agency 1.025 (1.010-1.025) Urine Protein Negative (NEGATIVE) mg/dL Urine Glucose (UA) Normal (NORMAL) mg/dL Urine Ketones 50 H (NEGATIVE) mg/dL Urine Occult Blood Moderate H (NEGATIVE) Urine Nitrite Negative (NEGATIVE) Urine Bilirubin Negative (NEGATIVE) Urine Urobilinogen Normal (NEGATIVE) mg/dL Ur Leukocyte Esterase Negative (NEGATIVE) Urine RBC 0-5 (0-5) Urine WBC 0-5 (0-5) Ur Squamous Epith Cells Few H (NS,R,O) Urine Bacteria Few H (NS) Med Orders - Current: Current Medications Acetaminophen (Tylenol) 650 mg PO Q4H PRN PRN Reason: Pain Last Admin: 06/26/19 00:41 Dose: 650 mg Albuterol/Ipratropium (Duoneb 3.0-0.5 Mg/3 Ml) 3 ml NEB QIDRT [facility] Last Admin: 06/26/19 06:16 Dose: 3 ml Amlodipine Besylate (Norvasc) 10 mg PO DAILY [facility] Last Admin: 06/26/19 08:34 Dose: 10 mg Ceftriaxone Sodium (Rocephin) 1 gm IVPUSH Q24H [facility] Last Admin: 06/25/19 13:54 Dose: 1 gm Cyanocobalamin (Vitamin B12) 1,000 mcg PO DAILY [facility] Last Admin: 06/26/19 08:34 Dose: 1,000 mcg Enoxaparin Sodium (Lovenox) 40 mg SUBCUT DAILY@1400 [facility] Sodium Chloride (Normal Saline) 1,000 mls @ 999 mls/hr IV ASDIRECTED [facility] Last Admin: 06/25/19 09:45 Dose: 999 mls/hr Azithromycin 500 mg/ Sodium (Chloride) 250 mls @ 250 mls/hr IV Q24H [facility] Last Admin: 06/25/19 13:56 Dose: 250 mls/hr Levothyroxine Sodium (Synthroid) 50 mcg PO ACBREAKFAST [facility] Last Admin: 06/26/19 06:29 Dose: 50 mcg Methylprednisolone Sodium Succinate (Solu-Medrol) 125 mg IVPUSH DAILY [facility] Multivitamins/Minerals/Vitamin C (Tab-A-Jn) 1 tab PO DAILY [facility] Last Admin: 06/26/19 08:33 Dose: 1 tab Nicotine (Habitrol) 21 mg TRDERM DAILY@1400 [facility] Rosuvastatin Calcium (Crestor) 10 mg PO BEDTIME [facility] Last Admin: 06/25/19 20:26 Dose: 10 mg Sertraline HCl (Zoloft) 50 mg PO DAILY [facility] Last Admin: 06/26/19 08:34 Dose: 50 mg Sodium Chloride (Saline Flush) 10 ml FLUSH ASDIRECTED PRN PRN Reason: Keep Vein Open Last Admin: 06/26/19 00:43 Dose: 10 ml Discontinued Medications Albuterol (Proventil Neb Soln) 2.5 mg NEB ONETIME ONE Stop: 06/25/19 09:31 Last Admin: 06/25/19 09:43 Dose: 2.5 mg Albuterol (Proventil Neb Soln) 2.5 mg NEB ONETIME ONE Stop: 06/25/19 11:59 Last Admin: 06/25/19 14:03 Dose: Not Given Albuterol/Ipratropium (Duoneb 3.0-0.5 Mg/3 Ml) 3 ml NEB ONETIME ONE Stop: 06/25/19 09:31 Last Admin: 06/25/19 09:43 Dose: 3 ml Aspirin (Aspirin) 324 mg PO ONETIME ONE Stop: 06/25/19 09:26 Last Admin: 06/25/19 09:10 Dose: 324 mg Enoxaparin Sodium (Lovenox) 40 mg SUBCUT DAILY [facility] Last Admin: 06/25/19 14:03 Dose: 40 mg Ceftriaxone Sodium 1 gm/ (Sodium Chloride) 50 mls @ 200 mls/hr IV Q24H [facility] Last Admin: 06/25/19 17:17 Dose: Not Given Methylprednisolone Sodium Succinate (Solu-Medrol) 125 mg IVPUSH ONETIME ONE Stop: 06/25/19 09:31 Last Admin: 06/25/19 09:46 Dose: 125 mg Methylprednisolone Sodium Succinate (Solu-Medrol) 125 mg IVPUSH Q8H [facility] Last Admin: 06/26/19 00:41 Dose: 125 mg Nicotine (Habitrol) 21 mg TRDERM DAILY [facility] Last Admin: 06/25/19 14:01 Dose: 21 mg - Exam General: Alert, Oriented, Cooperative Lungs: Clear to Auscultation, Normal Respiratory Effort, Decreased Breath Sounds. No: Crackles, Rales, Wheezing Cardiovascular: Regular Rate, Regular Rhythm, No Murmurs Extremities: No Pedal Edema - Problem List & Annotations (1) Hypoxia SNOMED Code(s): 571232023 Code(s): R09.02 - HYPOXEMIA Status: Acute Current Visit: Yes (2) URI (upper respiratory infection) SNOMED Code(s): 24303397 Code(s): J06.9 - ACUTE UPPER RESPIRATORY INFECTION, UNSPECIFIED Status: Acute Current Visit: Yes (3) Smoking SNOMED Code(s): 78035188 Code(s): F17.200 - NICOTINE DEPENDENCE, UNSPECIFIED, UNCOMPLICATED Status: Acute Current Visit: Yes (4) COPD exacerbation SNOMED Code(s): 019360535 Code(s): J44.1 - CHRONIC OBSTRUCTIVE PULMONARY DISEASE W (ACUTE) EXACERBATION Status: Acute Current Visit: Yes - Problem List Review Problem List Initiated/Reviewed/Updated: Yes - My Orders Last 24 Hours: My Active Orders 06/25/19 13:02 Resuscitation Status Routine 06/25/19 13:04 Up ad Delfina [RC] ASDIRECTED 06/25/19 13:07 SCD [Sequential Compression Device] [OM.PC] Routine 06/25/19 15:12 Oxygen Therapy [RC] ASDIRECTED 06/25/19 16:00 Albuterol/Ipratropium [DuoNeb 3.0-0.5 MG/3 ML] 3 ml NEB QIDRT 06/25/19 19:14 Acetaminophen [Tylenol] 650 mg PO Q4H PRN 06/25/19 21:00 Rosuvastatin [Crestor] 10 mg PO BEDTIME 06/25/19 Dinner Regular Diet [DIET] 06/26/19 07:30 Levothyroxine [Synthroid] 50 mcg PO ACBREAKFAST 06/26/19 08:45 Ambulate [RC] PER UNIT ROUTINE 06/26/19 09:00 Cyanocobalamin (Vitamin B12) [Vitamin B12] 1,000 mcg PO DAILY Multivitamins [Tab-A-Jn] 1 tab PO DAILY Sertraline [Zoloft] 50 mg PO DAILY amLODIPine [Norvasc] 10 mg PO DAILY methylPREDNISolone Sod Succ [Solu-MEDROL] 125 mg IVPUSH DAILY 06/26/19 14:00 Enoxaparin [Lovenox] 40 mg SUBCUT DAILY@1400 Nicotine [Habitrol] 21 mg TRDERM DAILY@1400 - Plan Plan:: 1. Change Solu-Medrol 125 mg IV to daily. 2. Continue nebulizer treatments as previous and antibiotics as previous. 3. Ambulate frequently and up in chair. 4. Continue O2 and try to wean off if the patient can tolerate it and keep her sats greater than 90%
[2019-06-26] MEDS ORDERED: Nicotine 21 MG/24 Hr Patch TRDERM SCH (10:00)
[2019-06-26] MEDS: Azithromycin 500 MG in Sodium Chloride 0.9% 250 ML IV SCH (13:24)
[2019-06-26] MEDS: cefTRIAXone 1 GM Vial IVPUSH SCH (13:24)
--- NOTE | 2019-06-26 13:57 | CR ---
INDICATION: Cough with shortness of breath. CHEST: Portable AP upright view of the chest, 06/25/19, was compared with 08/[address] chest of 02/22/18. Findings compatible with COPD are noted. Pulmonary markings appear similar to the previous examination without a definite active infiltrate or effusion identified. Heart is normal in size and shape. The aorta is somewhat tortuous. Overlying EKG leads are noted. IMPRESSION: 1. No acute process. 2. Probable COPD. 3. ASD aorta. 4. COPD appears progressive, compared with 2017. MTDD
[2019-06-26] MEDS ORDERED: Enoxaparin 40 MG/0.4 ML Syringe SUBCUT SCH (14:00)
[2019-06-26] MEDS: Rosuvastatin 10 MG Tab PO SCH (20:21)
[2019-06-26] MEDS ORDERED: diphenhydrAMINE 25 MG Cap PO SCH (21:00)
[2019-06-27] MEDS: Levothyroxine 50 MCG Tab PO SCH (06:29)
[2019-06-27] MEDS: Albuterol/Ipratropium 3.0-0.5 MG/3 ML Neb Soln NEB SCH (06:32)
--- NOTE | 2019-06-27 08:06 | PCM.PN ---
- General Info Date of Service: 06/27/19 Admission Dx/Problem (Free Text): Patient states she's much better. She says she coughed up a little dark phlegm. She has no wheezing. Little shortness of breath after she caused without even walking. No fevers, chills. - Patient Data Vitals - Most Recent: Last Vital Signs Temp 98.1 F 06/26/19 20:00 Pulse 112 H 06/26/19 20:00 Resp 20 06/26/19 20:00 BP 121/83 06/26/19 20:00 Pulse Ox 92 L 06/26/19 20:00 Weight - Most Recent: 156 lb 3 oz Med Orders - Current: Current Medications Acetaminophen (Tylenol) 650 mg PO Q4H PRN PRN Reason: Pain Last Admin: 06/26/19 21:56 Dose: 650 mg Albuterol/Ipratropium (Duoneb 3.0-0.5 Mg/3 Ml) 3 ml NEB QIDRT [facility] Last Admin: 06/27/19 06:32 Dose: 3 ml Amlodipine Besylate (Norvasc) 10 mg PO DAILY [facility] Last Admin: 06/26/19 08:34 Dose: 10 mg Azithromycin (Zithromax) 250 mg PO DAILY [facility] Stop: 06/30/19 09:01 Cyanocobalamin (Vitamin B12) 1,000 mcg PO DAILY [facility] Last Admin: 06/26/19 08:34 Dose: 1,000 mcg Diphenhydramine HCl (Benadryl) 25 mg PO BEDTIME [facility] Last Admin: 06/26/19 20:20 Dose: Not Given Enoxaparin Sodium (Lovenox) 40 mg SUBCUT DAILY@1400 [facility] Last Admin: 06/26/19 13:25 Dose: 40 mg Levothyroxine Sodium (Synthroid) 50 mcg PO ACBREAKFAST [facility] Last Admin: 06/27/19 06:29 Dose: 50 mcg Methylprednisolone Sodium Succinate (Solu-Medrol) 125 mg IVPUSH DAILY [facility] Last Admin: 06/26/19 10:05 Dose: 125 mg Multivitamins/Minerals/Vitamin C (Tab-A-Jn) 1 tab PO DAILY [facility] Last Admin: 06/26/19 08:33 Dose: 1 tab Nicotine (Habitrol) 21 mg TRDERM DAILY@1000 [facility] Last Admin: 06/26/19 10:04 Dose: 21 mg Rosuvastatin Calcium (Crestor) 10 mg PO BEDTIME [facility] Last Admin: 06/26/19 20:21 Dose: 10 mg Sertraline HCl (Zoloft) 50 mg PO DAILY [facility] Last Admin: 06/26/19 08:34 Dose: 50 mg Sodium Chloride (Saline Flush) 10 ml FLUSH ASDIRECTED PRN PRN Reason: Keep Vein Open Last Admin: 06/26/19 10:05 Dose: 10 ml Discontinued Medications Albuterol (Proventil Neb Soln) 2.5 mg NEB ONETIME ONE Stop: 06/25/19 09:31 Last Admin: 06/25/19 09:43 Dose: 2.5 mg Albuterol (Proventil Neb Soln) 2.5 mg NEB ONETIME ONE Stop: 06/25/19 11:59 Last Admin: 06/25/19 14:03 Dose: Not Given Albuterol/Ipratropium (Duoneb 3.0-0.5 Mg/3 Ml) 3 ml NEB ONETIME ONE Stop: 06/25/19 09:31 Last Admin: 06/25/19 09:43 Dose: 3 ml Aspirin (Aspirin) 324 mg PO ONETIME ONE Stop: 06/25/19 09:26 Last Admin: 06/25/19 09:10 Dose: 324 mg Ceftriaxone Sodium (Rocephin) 1 gm IVPUSH Q24H [facility] Last Admin: 06/26/19 13:24 Dose: 1 gm Enoxaparin Sodium (Lovenox) 40 mg SUBCUT DAILY [facility] Last Admin: 06/25/19 14:03 Dose: 40 mg Sodium Chloride (Normal Saline) 1,000 mls @ 999 mls/hr IV ASDIRECTED [facility] Last Admin: 06/25/19 09:45 Dose: 999 mls/hr Azithromycin 500 mg/ Sodium (Chloride) 250 mls @ 250 mls/hr IV Q24H [facility] Last Admin: 06/26/19 13:24 Dose: 250 mls/hr Ceftriaxone Sodium 1 gm/ (Sodium Chloride) 50 mls @ 200 mls/hr IV Q24H [facility] Last Admin: 06/25/19 17:17 Dose: Not Given Methylprednisolone Sodium Succinate (Solu-Medrol) 125 mg IVPUSH ONETIME ONE Stop: 06/25/19 09:31 Last Admin: 06/25/19 09:46 Dose: 125 mg Methylprednisolone Sodium Succinate (Solu-Medrol) 125 mg IVPUSH Q8H [facility] Last Admin: 06/26/19 00:41 Dose: 125 mg Nicotine (Habitrol) 21 mg TRDERM DAILY [facility] Last Admin: 06/25/19 14:01 Dose: 21 mg - Exam General: Alert, Oriented Lungs: Clear to Auscultation, Normal Respiratory Effort. No: Crackles, Rales, Rhonchi, Wheezing Cardiovascular: Regular Rate, Regular Rhythm - Problem List & Annotations (1) Hypoxia SNOMED Code(s): 220869129 Code(s): R09.02 - HYPOXEMIA Status: Acute Current Visit: Yes (2) URI (upper respiratory infection) SNOMED Code(s): 27854926 Code(s): J06.9 - ACUTE UPPER RESPIRATORY INFECTION, UNSPECIFIED Status: Acute Current Visit: Yes (3) Smoking SNOMED Code(s): 54526519 Code(s): F17.200 - NICOTINE DEPENDENCE, UNSPECIFIED, UNCOMPLICATED Status: Acute Current Visit: Yes (4) COPD exacerbation SNOMED Code(s): 646720134 Code(s): J44.1 - CHRONIC OBSTRUCTIVE PULMONARY DISEASE W (ACUTE) EXACERBATION Status: Acute Current Visit: Yes - Problem List Review Problem List Initiated/Reviewed/Updated: Yes - My Orders Last 24 Hours: My Active Orders 06/26/19 07:30 Levothyroxine [Synthroid] 50 mcg PO ACBREAKFAST 06/26/19 08:45 Ambulate [RC] PER UNIT ROUTINE 06/26/19 09:00 Cyanocobalamin (Vitamin B12) [Vitamin B12] 1,000 mcg PO DAILY Multivitamins [Tab-A-Jn] 1 tab PO DAILY Sertraline [Zoloft] 50 mg PO DAILY amLODIPine [Norvasc] 10 mg PO DAILY methylPREDNISolone Sod Succ [Solu-MEDROL] 125 mg IVPUSH DAILY 06/26/19 10:00 Nicotine [Habitrol] 21 mg TRDERM DAILY@1000 06/26/19 14:00 Enoxaparin [Lovenox] 40 mg SUBCUT DAILY@1400 06/26/19 17:09 Convert IV to Saline Lock [OM.PC] Routine 06/26/19 17:10 Convert IV to Saline Lock [OM.PC] Routine 06/26/19 21:00 diphenhydrAMINE [Benadryl] 25 mg PO BEDTIME 06/27/19 07:49 Ready for Discharge [RC] PER UNIT ROUTINE 06/28/19 09:00 Azithromycin [Zithromax] 250 mg PO DAILY - Assessment Assessment:: 1. Discharge to home 2. Albuterol neb machine ordered and 4 times a day nebs when necessary 3. Continue her home meds 4. Prednisone 40 mg a day for 7 days. 5. Recheck with her primary provider in one week. - Plan Plan:: 1. Change Solu-Medrol 125 mg IV to daily. 2. Continue nebulizer treatments as previous and antibiotics as previous. 3. Ambulate frequently and up in chair. 4. Continue O2 and try to wean off if the patient can tolerate it and keep her sats greater than 90%
--- NOTE | 2019-06-27 08:08 | PCM.DCSUM1 ---
Discharge Summary - Hospital Course Free Text/Narrative:: Hospital course-patient was placed on Solu-Medrol 125 mg every 8 hours, dual nebs 4 times a day and every 4 hours, Rocephin, Zithromax IV and O2 is a cannula. Patient by the next day was off her oxygen. She saw some coughing and wheezing. Stop the Rocephin and placed her on Zithromax by mouth. Patient will tachycardic from the nebulizer treatment. By day #2 patient was doing well and hardly have any shortness of breath or wheezing at all. She was abnormal with a cough with dark sputum. She had no fevers or chills. We'll discharge her home on Zithromax, prednisone, nebulizers and her regular medications Brief History: this is a 68-year-old female patient with a history of COPD and smoking. 2 days prior to being hospitalized patient started having a chest cold with nasal congestion, sore throat, left ear pain, fevers or chills and a cough. Day prior to being seen she started he really short of breath and wheeze. She was seen in the ER and she was hypoxic. They gave her nebulizer she was in oxygen and then she was admitted. She says she's never been on prednisone or an oxygen before. She has a long history of smoking and still smokes 3 course pack-a-day. She says she's tried to quit over 40 times. She says some nausea and vomited 1. No diarrhea, abdominal pain or leg swelling. Diagnosis: Stroke: No - Discharge Data Discharge Date: 06/27/19 Discharge Disposition: Home, Self-Care 01 Condition: Good - Discharge Diagnosis/Problem(s) (1) Hypoxia SNOMED Code(s): 576689143 ICD Code: R09.02 - HYPOXEMIA Status: Acute Current Visit: Yes (2) URI (upper respiratory infection) SNOMED Code(s): 17264249 ICD Code: J06.9 - ACUTE UPPER RESPIRATORY INFECTION, UNSPECIFIED Status: Acute Current Visit: Yes (3) Smoking SNOMED Code(s): 59317101 ICD Code: F17.200 - NICOTINE DEPENDENCE, UNSPECIFIED, UNCOMPLICATED Status : Acute Current Visit: Yes (4) COPD exacerbation SNOMED Code(s): 221159793 ICD Code: J44.1 - CHRONIC OBSTRUCTIVE PULMONARY DISEASE W (ACUTE) EXACERBATION Status: Acute Current Visit: Yes - Patient Instructions Diet: Regular Diet as Tolerated Activity: As Tolerated Driving: May Drive Today Showering/Bathing: May Shower Notify Provider of: Fever Other/Special Instructions: 1. Recheck with Lakisha Fish in 1 week. - Discharge Plan Prescriptions/Med Rec: Albuterol/Ipratropium [DuoNeb 3.0-0.5 MG/3 ML] 3 ml NEB QIDRT #60 neb Azithromycin [Zithromax] 250 mg PO DAILY #3 tablet predniSONE 40 mg PO WITHBREAKFAST #7 tab Home Medications: Home Meds Multivitamin [Multivitamins] 1 tab PO DAILY 06/30/14 [History] Albuterol Sulfate [Albuterol Sulfate Hfa] 2 puff Q4H PRN 06/25/19 [History] Ascorbic Acid [Vitamin C] 1,000 mg PO DAILY 06/25/19 [History] Cholecalciferol (Vitamin D3) [Vitamin D3] 2,000 unit PO DAILY 06/25/19 [History] Cyanocobalamin (Vitamin B-12) [Vitamin B-12] 1,000 mcg PO DAILY 06/25/19 [ History] Levothyroxine [Synthroid] 50 mcg DAILY 06/25/19 [History] Rosuvastatin Calcium 10 mg BEDTIME 06/25/19 [History] Sertraline HCl 50 mg DAILY 06/25/19 [History] Umeclidinium Brm/Vilanterol Tr [Anoro Ellipta 62.5-25 MCG] 1 puff DAILY [History] amLODIPine Besylate [Amlodipine Besylate] 10 mg DAILY 06/25/19 [History] Albuterol/Ipratropium [DuoNeb 3.0-0.5 MG/3 ML] 3 ml NEB QIDRT #60 neb 06/27/19 [ Rx] Azithromycin [Zithromax] 250 mg PO DAILY #3 tablet 06/27/19 [Rx] Nicotine [Habitrol] 21 mg TRDERM DAILY@1000 patch 06/27/19 [Rx] predniSONE 40 mg PO WITHBREAKFAST #7 tab 06/27/19 [Rx] Patient Handouts: Chronic Obstructive Pulmonary Disease Exacerbation, Easy-to- Read, Fall Prevention in Hospitals, Adult, Venous Thromboembolism Prevention Forms: ED Department Discharge Referrals: Lakisha Huitron [facility] [Primary Care Provider] - - Discharge Summary/Plan Comment DC Time >30 min.: No - Patient Data Vitals - Most Recent: Last Vital Signs Temp 98.1 F 06/26/19 20:00 Pulse 112 H 06/26/19 20:00 Resp 20 06/26/19 20:00 BP 121/83 06/26/19 20:00 Pulse Ox 92 L 06/26/19 20:00 Weight - Most Recent: 156 lb 3 oz Med Orders - Current: Current Medications Acetaminophen (Tylenol) 650 mg PO Q4H PRN PRN Reason: Pain Last Admin: 06/26/19 21:56 Dose: 650 mg Albuterol/Ipratropium (Duoneb 3.0-0.5 Mg/3 Ml) 3 ml NEB QIDRT [facility] Last Admin: 06/27/19 06:32 Dose: 3 ml Amlodipine Besylate (Norvasc) 10 mg PO DAILY [facility] Last Admin: 06/26/19 08:34 Dose: 10 mg Azithromycin (Zithromax) 250 mg PO DAILY [facility] Stop: 06/30/19 09:01 Cyanocobalamin (Vitamin B12) 1,000 mcg PO DAILY [facility] Last Admin: 06/26/19 08:34 Dose: 1,000 mcg Diphenhydramine HCl (Benadryl) 25 mg PO BEDTIME [facility] Last Admin: 06/26/19 20:20 Dose: Not Given Enoxaparin Sodium (Lovenox) 40 mg SUBCUT DAILY@1400 [facility] Last Admin: 06/26/19 13:25 Dose: 40 mg Levothyroxine Sodium (Synthroid) 50 mcg PO ACBREAKFAST [facility] Last Admin: 06/27/19 06:29 Dose: 50 mcg Methylprednisolone Sodium Succinate (Solu-Medrol) 125 mg IVPUSH DAILY [facility] Last Admin: 06/26/19 10:05 Dose: 125 mg Multivitamins/Minerals/Vitamin C (Tab-A-Jn) 1 tab PO DAILY [facility] Last Admin: 06/26/19 08:33 Dose: 1 tab Nicotine (Habitrol) 21 mg TRDERM DAILY@1000 [facility] Last Admin: 06/26/19 10:04 Dose: 21 mg Rosuvastatin Calcium (Crestor) 10 mg PO BEDTIME [facility] Last Admin: 06/26/19 20:21 Dose: 10 mg Sertraline HCl (Zoloft) 50 mg PO DAILY [facility] Last Admin: 06/26/19 08:34 Dose: 50 mg Sodium Chloride (Saline Flush) 10 ml FLUSH ASDIRECTED PRN PRN Reason: Keep Vein Open Last Admin: 06/26/19 10:05 Dose: 10 ml Discontinued Medications Albuterol (Proventil Neb Soln) 2.5 mg NEB ONETIME ONE Stop: 06/25/19 09:31 Last Admin: 06/25/19 09:43 Dose: 2.5 mg Albuterol (Proventil Neb Soln) 2.5 mg NEB ONETIME ONE Stop: 06/25/19 11:59 Last Admin: 06/25/19 14:03 Dose: Not Given Albuterol/Ipratropium (Duoneb 3.0-0.5 Mg/3 Ml) 3 ml NEB ONETIME ONE Stop: 06/25/19 09:31 Last Admin: 06/25/19 09:43 Dose: 3 ml Aspirin (Aspirin) 324 mg PO ONETIME ONE Stop: 06/25/19 09:26 Last Admin: 06/25/19 09:10 Dose: 324 mg Ceftriaxone Sodium (Rocephin) 1 gm IVPUSH Q24H [facility] Last Admin: 06/26/19 13:24 Dose: 1 gm Enoxaparin Sodium (Lovenox) 40 mg SUBCUT DAILY [facility] Last Admin: 06/25/19 14:03 Dose: 40 mg Sodium Chloride (Normal Saline) 1,000 mls @ 999 mls/hr IV ASDIRECTED [facility] Last Admin: 06/25/19 09:45 Dose: 999 mls/hr Azithromycin 500 mg/ Sodium (Chloride) 250 mls @ 250 mls/hr IV Q24H [facility] Last Admin: 06/26/19 13:24 Dose: 250 mls/hr Ceftriaxone Sodium 1 gm/ (Sodium Chloride) 50 mls @ 200 mls/hr IV Q24H [facility] Last Admin: 06/25/19 17:17 Dose: Not Given Methylprednisolone Sodium Succinate (Solu-Medrol) 125 mg IVPUSH ONETIME ONE Stop: 06/25/19 09:31 Last Admin: 06/25/19 09:46 Dose: 125 mg Methylprednisolone Sodium Succinate (Solu-Medrol) 125 mg IVPUSH Q8H [facility] Last Admin: 06/26/19 00:41 Dose: 125 mg Nicotine (Habitrol) 21 mg TRDERM DAILY [facility] Last Admin: 06/25/19 14:01 Dose: 21 mg
[2019-06-27] MEDS: Cyanocobalamin (Vitamin B12) 1,000 MCG Tab PO SCH (08:47)
[2019-06-27] MEDS: Multivitamin Tab PO SCH (08:47)
[2019-06-27] MEDS: Sertraline 50 MG Tab PO SCH (08:47)
[2019-06-27] MEDS: amLODIPine 10 MG Tab PO SCH (08:47)
[2019-06-27] MEDS: methylPREDNISolone Sodium Succinate 125 MG/2 ML SDV IVPUSH SCH (08:48)
[2019-06-27] MEDS: Sodium Chloride 0.9% 10 ML Syringe FLUSH PRN (08:58)
[2019-06-28] MEDS ORDERED: Azithromycin 250 MG Tab PO SCH (09:00)
== END 2019-06-27 10:10 | disposition home or self-care (01) | DRG 189 ==
LOC: FB.ED 08:54 → FB.MS 11:56
PROVIDERS: ADMIT Family Medicine; ATTEND Family Medicine
DX: J96.01 Acute respiratory failure with hypoxia (principal); R07.89 Other chest pain; J44.1 Chronic obstructive pulmonary disease with (acute) exacerbation; F17.210 Nicotine dependence, cigarettes, uncomplicated; J06.9 Acute upper respiratory infection, unspecified; I10 Essential (primary) hypertension; E78.00 Pure hypercholesterolemia, unspecified; F41.9 Anxiety disorder, unspecified; F32.9 Major depressive disorder, single episode, unspecified; E03.9 Hypothyroidism, unspecified; Z79.890 Hormone replacement therapy; Z99.81 Dependence on supplemental oxygen; F17.200 Nicotine dependence, unspecified, uncomplicated; Z79.51 Long term (current) use of inhaled steroids; Z79.899 Other long term (current) drug therapy; Z79.2 Long term (current) use of antibiotics; Z71.6 Tobacco abuse counseling
CPT/HCPCS: 36415; 71045; 80053; 82803; 83735; 83880; 84484; 85025; 85379; 86140; 93005; 94640; 96361; 96374; 99285 ×2; A9270; J2930; J7030; 81001; J0456; J0696; J1650; J7050; J7620-GY